=== PATIENT | female | born 1930 | race Caucasian/White ===

== ENCOUNTER → 2016-07-19 | Outpatient (CLI) | payer OTHER ==
[~2016-07-19] MED LIST: CHOLTAB3 PO; HYDR12.55 PO; HYDR25TA4 PO; HYZ/50125 PO; MULT-190 PO; Occuvite PO; PRD/25 PO
[2016-07-19 13:43] VITALS: BP 164/76; PULSE 66; TEMP 36.7; O2SAT 96
--- NOTE | 2016-07-19 14:45 | Radiation Oncology Follow-Up ---
Radiation Oncology Follow-Up Date of Visit Jul 19, 2016. 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 She has noted no changes to her breast. She has noticed no masses or tenderness no change of the axilla. She' s had no swelling of her arm. She continues regular follow-up with Dr. Coronado. She had a recheck mammogram 04/26/2016. This was performed at [facility]. There was no significant interval change, there is no finding to suggest disease recurrence. BI-RADS Category 2. She did have a prominent right axillary lymph node, correlate clinically. Has a known history of lymphoma. Allergies Coded Allergies: Tamoxifen (Unverified Allergy, Mild, HIVES, 05/19/14) Acetaminophen (Unverified Allergy, Unknown, HIVES, 05/23/13) itching and felt like her throat was closing. Aspirin (Unverified Allergy, Unknown, HIVES, 05/23/13) and swollen Celecoxib (Unverified Allergy, Unknown, GI SYMPTOMS, 05/23/13) bothered stomach Hydrocodone (Unverified Allergy, Unknown, HIVES, 05/23/13) itching and felt like her throat was closing. Home Medications Scheduled Ergocalciferol (Vitamin D), 400 INTER.UNIT PO DAILY Hydrochlorothiazide (Hydrochlorothiazide), 1 TAB PO DAILY Ocuvite Preservision (Ocuvite Preservision), 1 TAB PO DAILY Prednisone (Prednisone), 2.5 MG PO DAILY Review of Systems Gastrointestinal: Symptoms: WNL Oral: Symptoms: No Problems Respiratory: Symptoms: WNL Urinary: Symptoms: Nocturia Comments: nocturia times 1 Skin: Symptoms: No Problems Other Skin Symptoms: Swelling in left axilla - fluid filled cord Breast: Right Upper Arm Measurement: 34.5 Right Mid Arm Measurement: 27.5 Right Wrist Measurement: 18.2 Left Upper Arm Measurement: 33.5 Left Mid Arm Measurement: 28.5 Left Wrist Measurement: 18.6 Arm Dominence: Right Patient Cosmetic Evaluation: Excellent Staff Cosmetic Evalaluation: Excellent Physical Exam Vital Signs Date Time Temp Pulse Resp B/P (MAP) Pulse Ox O2 Delivery O2 Flow Rate FiO2 07/19/16 13:43 36.7 66 18 164/76 96 Pain: Side: Bilateral Pain Location: None Patient Pain Scale: 0 - 10 Initial Pain Intensity: 0.0 Fatigue: None General Appearance: no apparent distress Eyes: normal inspection, EOMI ENT: normal ENT inspection, hearing grossly normal Neck: supple, thyroid normal, + pertinent finding (palpable right supraclavicular node unchanged from previous examination) Respiratory/Chest: lungs clear, no respiratory distress, no accessory muscle use Breast: Breast examination reveals well-healed incisions of the left breast. There are no masses or tenderness and no axillary adenopathy. Using the Bock score cosmesis she has a excellent outcome. Right breast showed no masses or tenderness no axillary adenopathy. Cardiovascular: regular rate, rhythm, no gallop, no murmur Neurologic/Psychiatric: no motor/sensory deficits, alert, normal mood/affect Skin: warm/dry Additional Studies Mammography as reviewed above. Assessment & Plan Plan: Continue regular follow-up with Dr. Coronado and her primary care physician. Continue scheduled mammography. She is not on antiestrogen therapy. She was unable to tolerate the medications. We asked her to return to our office in 1 year. She will call if she has no questions or concerns in the interim. Total Time In Follow-Up I spent 20 minutes speaking to the patient performing examination. I spent 15 minutes reviewing information completing this note. Copy To Delvis Coronado M.D.; Jose Pinedo M.D. Problem Qualifiers (1) Breast cancer: Patient sex: female Laterality: left
== END | disposition home or self-care (01) ==
LOC: C.ONC 12:17
PROVIDERS: ATTEND Physician Assistant Medical
DX: Z08 Encounter for follow-up examination after completed treatment for malignant neoplasm (principal); Z92.3 Personal history of irradiation; Z85.3 Personal history of malignant neoplasm of breast